=== PATIENT | male | born 1965 | race Caucasian/White ===

== ENCOUNTER 2017-05-05 17:07 | Outpatient (CLI) | payer OTHER ==
[2017-05-05 17:34] LABS: #Eosinphils 0.1 thou/uL (0.0-0.7); #Lymphocytes 1.7 thou/uL (1.20-3.40); #Monocytes 0.6 thou/uL (0.11-0.59); #Neutrophils 7.3 thou/uL (1.40-6.50); %Basophils 0.4 % (0.0-1.0); %Eosinophils 1.1 % (0.0-10.0); %Lymphocytes 17.8 % (21.0-51.0); %Monocytes 5.9 % (0.0-10.0); Hematocrit 50.1 % (42.0-52.0); Mean Platelet Volume 9.2 fL (7.4-10.4); Red Blood Cell (RBC) Count 5.66 mill/uL (4.70-6.10); White Blood Cell (WBC) Count 9.7 thou/uL (4.8-10.8)
--- NOTE | 2017-05-06 17:00 | EKG ---
Test Reason : Blood Pressure : / mmHG Vent. Rate : 063 BPM Atrial Rate : 063 BPM P-R Int : 158 ms QRS Dur : 092 ms QT Int : 426 ms P-R-T Axes : 029 046 031 degrees QTc Int : 435 ms Normal sinus rhythm Normal ECG No previous ECGs available Confirmed by DR. Nacho WRIGHT ([id number]) on 05/06/2017 5:00:38 PM Referred By: PORTILLO Confirmed By:DR. Nacho WRIGHT
== END 2017-05-05 17:08 | disposition home or self-care (01) ==
LOC: LABBT 17:07
PROVIDERS: ATTEND Surgery
DX: Z01.818 Encounter for other preprocedural examination (principal); K60.2 Anal fissure, unspecified
CPT/HCPCS: 85025; 93005; 93010

== ENCOUNTER 2017-05-06 06:03 | Day surgery (SDC) | payer OTHER ==
[2017-05-05 17:32] VITALS: BMI 34.0
[2017-05-06] MEDS ORDERED: Fentanyl 100 MCG/2 ML VIAL ONE (06:20)
[2017-05-06] MEDS ORDERED: Midazolam HCl 2 mg/2 ml Vial ONE (06:20)
[2017-05-06] MEDS ORDERED: Fentanyl 250 MCG/5 ML VIAL ONE (06:20)
[2017-05-06] MEDS ORDERED: Bacitracin Zinc Ointment 30 gm TUBE ONE (07:25)
[2017-05-06] MEDS ORDERED: Bupivacaine/Epinephrine 0.25% 30 ML VIAL ONE (07:25)
[2017-05-06] MEDS ORDERED: Lidocaine 2% PF 5 ML VIAL ONE (07:26)
[2017-05-06] MEDS ORDERED: cefOXitin 2 GM VIAL ONE (07:55)
--- NOTE | 2017-05-06 08:31 | OP ---
PREOPERATIVE DIAGNOSIS: Chronic anterior anal fissure. SURGEON: Lebron Vera M.D. PROCEDURE PERFORMED: Lateral internal sphincterotomy. INDICATIONS: This is a 51-year-old male who has had almost a year of anal pain and intermittent blee ding. He had a colonoscopy that was unremarkable and found to have an anterior anal fissure with sen tinel pile. FINDINGS: Chronic anterior anal fissure. PROCEDURE IN DETAIL: After informed consent was obtained, patient was taken to the operating room. He was given general mask anesthesia and placed in the lithotomy position. Perianal region was prepp ed and draped in the usual fashion. Local anesthesia infiltrated subcutaneously and deep as a four q uadrant anal block. The bivalve anal retractor was inserted within the anal canal and the sphincter placed under tension. After careful inspection was performed, he did have a chronic anterior anal fi ssure. Once the sphincter was under tension, the intersphincteric groove could easily be palpated an d an incision was made in the intersphincteric groove. Anoderm and anal mucosa was bluntly dissected from the internal sphincter. Then the internal sphincter was bluntly dissected from the external sp hincter and sharply divided utilizing Metzenbaum scissors. Hemostasis achieved with direct pressure. The skin was closed with a 3-0 chromic suture. Gelfoam impregnated with bacitracin was inserted wi thin the anal canal and a sterile bandage applied. The patient tolerated the procedure well and hancock sferred to recovery in good condition. Sponge and needle count verified correct x2.
[2017-05-06] MEDS ORDERED: Promethazine HCl 25 MG/ML VIAL ONE (09:13)
[2017-05-06] MEDS ORDERED: Morphine 4 MG/ML VIAL ONE (09:13)
[2017-05-06] MEDS ORDERED: HYDROcodone/Acetaminophen 5/325 mg Tablet ONE (10:08)
[2017-05-06] MEDS ORDERED: Ondansetron HCl/PF 4 MG/2 ML Vial ONE (16:56)
[2017-05-06] MEDS ORDERED: Propofol 200 MG/20 ML VIAL ONE (16:56)
[2017-05-06] MEDS ORDERED: Lidocaine 1% PF 5 ML VIAL ONE (16:56)
[2017-05-06] MEDS ORDERED: Dexamethasone 20 MG/5 ML VIAL ONE (16:56)
== END 2017-05-06 10:40 | disposition home or self-care (01) ==
LOC: SDC 06:03
PROVIDERS: ATTEND Surgery
PROC: 0D8R0ZZ Division of Anal Sphincter, Open Approach (ICD-10-PCS; principal; 2017-05-06)
DX: K60.1 Chronic anal fissure (principal); I10 Essential (primary) hypertension; J45.909 Unspecified asthma, uncomplicated; M19.90 Unspecified osteoarthritis, unspecified site; Z79.899 Other long term (current) drug therapy; Z98.890 Other specified postprocedural states
CPT/HCPCS: 96374; 96375; J0131; J0694; J1100; J2001; J2250; J2270; J2405; J2550; J2704; J3010